=== PATIENT | male | born 1990 | race Caucasian/White ===

== ENCOUNTER 2022-05-18 15:04 | Emergency (ER) | payer OTHER, BC ==
[2022-05-18 15:13] VITALS: RESP 17
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
[2022-05-18] MEDS ORDERED: DIPH,PERTUS(ACELL)TETVAC-LF 0.5 ML VIAL IM ONE (16:26)
[2022-05-18 16:27] VITALS: BP 133/78; PULSE 75; TEMP 98.8
== END 2022-05-18 16:42 | disposition home or self-care (01) ==
LOC: EC 15:04
DX: S02.2XXA Fracture of nasal bones, initial encounter for closed fracture (principal); Z23 Encounter for immunization; Z87.891 Personal history of nicotine dependence; V43.52XA Car driver injured in collision with other type car in traffic accident, initial encounter; Y92.410 Unspecified street and highway as the place of occurrence of the external cause; Y93.89 Activity, other specified
CPT/HCPCS: 70450; 70486; 72125; 90471; 90715; 99284